=== PATIENT | male | born 1955 | race Caucasian/White ===

== ENCOUNTER 2018-04-30 10:53 | Emergency (ER) | payer OTHER ==
--- NOTE | 2018-04-30 11:49 | ED ---
General Adult HPI - General Chief complaint: ENT Stated complaint: sinus infection Time Seen by Provider: 04/30/18 11:09 Source: patient, RN notes reviewed Mode of arrival: ambulatory Limitations: no limitations - History of Present Illness Initial comments: 63-year-old male sent to the emergency department for a chief complaint of right ear pain x 3 days. Patient states he has been having a sharp right ear pain that shoots down to his right jaw. Patient states he has had this before and knows it is his eustachian tube. Patient states he has chronic sinusitis for over a few years now. Patient states he sees the OR for this and has a nasal spray. Patient states his ear started hurting and he wanted to make sure it wasn't infected. Patient denies any sore throat or cough. Patient denies any fevers or chills. Patient denies any facial pain or headaches. Patient states he is following up with the OR for a specialist appointment for chronic sinusitis. Patient has no other complaints at this time including shortness of breath, chest pain, abdominal pain, nausea or vomiting, headache, or visual changes. - Related Data Home Medications Medication Instructions Recorded Confirmed Aspirin EC [Ecotrin Low Dose] 81 mg PO DAILY 04/30/18 04/30/18 Atorvastatin [Lipitor] 40 mg PO DAILY 04/30/18 04/30/18 Empagliflozin [Jardiance] 10 mg PO DAILY 04/30/18 04/30/18 Fluticasone Nasal [place] [Flonase 2 spr EA NOSTRIL DAILY 04/30/18 04/30/18 Nasal [place]] Hydrocortisone/Pramoxine 1 applic RECTAL DAILY PRN 04/30/18 04/30/18 [Proctofoam-Hc 1%-1% Foam] Insulin Aspart [NovoLOG Flexpen] 10 units SQ AC-SUPPER 04/30/18 04/30/18 Insulin Aspart [NovoLOG Flexpen] 12 units SQ AC-LUNCH 04/30/18 04/30/18 Insulin Glargine,Hum.rec.anlog 45 unit SQ DAILY 04/30/18 04/30/18 [Lantus Solostar] Lisinopril [Zestril] 2.5 mg PO DAILY 04/30/18 04/30/18 Metoprolol Tartrate [Lopressor] 25 mg PO BID 04/30/18 04/30/18 Tamsulosin [Flomax] 0.4 mg PO HS 04/30/18 04/30/18 metFORMIN HCL [metFORMIN HCL ER] 1,000 mg PO BID-W/MEALS 04/30/18 04/30/18 Previous Rx's Medication Instructions Recorded Fluticasone Propionate [Flonase 1 spray EA NOSTRIL DAILY #9.9 ml 04/30/18 Allergy Relief] Loratadine [Claritin] 10 mg PO DAILY #20 tab 04/30/18 Allergies Allergy/AdvReac Type Severity Reaction Status Date / Time No Known Allergies Allergy Unverified 04/30/18 11:41 Review of Systems ROS Statement: Those systems with pertinent positive or pertinent negative responses have been documented in the HPI. ROS Other: All systems not noted in ROS Statement are negative. Past Medical History Past Medical History: Coronary Artery Disease (CAD), Diabetes Mellitus, Hyperlipidemia, Hypertension Additional Past Medical History / Comment(s): hard of hearing History of Any Multi-Drug Resistant Organisms: None Reported Past Surgical History: Coronary Bypass/CABG Additional Past Surgical History / Comment(s): cataract removal Past Psychological History: No Psychological Hx Reported Smoking Status: Former smoker Past Alcohol Use History: None Reported Past Drug Use History: None Reported General Exam Limitations: no limitations General appearance: alert, in no apparent distress Head exam: Present: atraumatic, normocephalic, normal inspection Eye exam: Present: normal appearance, PERRL, EOMI. Absent: scleral icterus, conjunctival injection, periorbital swelling ENT exam: Present: normal exam, normal oropharynx, mucous membranes moist, TM's normal bilaterally (Non-erythematous and bulging tympanic membranes bilaterally. No evidence of perforation or trauma.), normal external ear exam ( No tragus or pinna tenderness, no swelling in the ear canal) Neck exam: Present: normal inspection, full ROM. Absent: tenderness, meningismus, lymphadenopathy Respiratory exam: Present: normal lung sounds bilaterally. Absent: respiratory distress, wheezes, rales, rhonchi Cardiovascular Exam: Present: regular rate, normal rhythm, normal heart sounds. Absent: bradycardia, tachycardia, irregular rhythm Neurological exam: Present: alert, oriented X3, CN II-XII intact Psychiatric exam: Present: normal affect, normal mood Course Vital Signs 04/30/18 11:04 Temperature 98.3 F Pulse Rate 77 Respiratory 18 Rate Blood Pressure 142/73 O2 Sat by Pulse 93 L Oximetry Medical Decision Making - Medical Decision Making 63-year-old male presents to the emergency department for chief complaint of right ear pain 3 days. Patient has a history of chronic sinusitis and has had similar symptoms for which she has had attributed to his eustachian tube. Patient is currently using an Afrin nasal spray states the last time this happened he used Flonase which helped. Patient denies fevers or chills at home. Patient denies any headaches. On exam patient has a non-erythematous and non- bulging right tympanic membrane. No erythema or edema in the ear canal. No evidence for an otitis media or otitis externa. No tenderness in the mastoid. No drainage from the ear. At this time, no evidence of infection. Patient likely experiencing Eustachian tube dysfunction related to chronic sinusitis. Patient will be given Claritin as he does not currently take any ALLERGY medications. He will also be given a prescription of Flonase. He will follow up with the OR at his scheduled appointment to discuss specialty referral. He would rather do this and see one of our specialists. He will return to the emergency department if he has any worsening symptoms or fevers. Disposition Clinical Impression: Eustachian tube dysfunction Disposition: HOME SELF-CARE Condition: Good Instructions: Earache (ED) Additional Instructions: Please take prescriptions as directed. Continue to take Tylenol for pain. [facility] Return to the emergency department if you have any worsening symptoms. Prescriptions: Fluticasone Propionate [Flonase Allergy Relief] 1 spray EA NOSTRIL DAILY #9.9 ml Loratadine [Claritin] 10 mg PO DAILY #20 tab Is patient prescribed a controlled substance at d/c from ED?: No Referrals: [facility],Clinic [Primary Care Provider] - 1-2 days Time of Disposition: 11:46
[2018-04-30 12:20] VITALS: BP 151/94; PULSE 78; RESP 16; TEMP 97.8
== END 2018-04-30 12:19 | disposition home or self-care (01) ==
LOC: EC 10:53
DX: H69.91 Unspecified Eustachian tube disorder, right ear (principal); J32.9 Chronic sinusitis, unspecified; I25.10 Atherosclerotic heart disease of native coronary artery without angina pectoris; E11.9 Type 2 diabetes mellitus without complications; I10 Essential (primary) hypertension; E78.5 Hyperlipidemia, unspecified; Z95.1 Presence of aortocoronary bypass graft; Z87.891 Personal history of nicotine dependence; Z79.4 Long term (current) use of insulin; Z79.51 Long term (current) use of inhaled steroids; Z79.82 Long term (current) use of aspirin; Z79.899 Other long term (current) drug therapy
CPT/HCPCS: 99282

== ENCOUNTER 2019-10-26 12:40 | Emergency (ER) | payer OTHER ==
[2019-10-26 12:54] VITALS: BP 143/77; PULSE 71; RESP 18; TEMP 97.4
--- NOTE | 2019-10-26 13:03 | ED ---
ENT HPI - General Chief complaint: ENT Stated complaint: foreign body in let ear Time Seen by Provider: 10/26/19 12:56 Source: patient, RN notes reviewed Mode of arrival: ambulatory Limitations: no limitations - History of Present Illness Initial comments: This a 64-year-old male presents emergency Department with chief complaint of left ear foreign body. Patient states he has piece of his hearing aid earplugs stuck in his left ear. He states he is unable to remove it. Denies any pain no bleeding denies any other complaints. - Related Data Home Medications Medication Instructions Recorded Confirmed Aspirin EC [Ecotrin Low Dose] 81 mg PO DAILY 04/30/18 04/30/18 Atorvastatin [Lipitor] 40 mg PO DAILY 04/30/18 04/30/18 Empagliflozin [Jardiance] 10 mg PO DAILY 04/30/18 04/30/18 Fluticasone Nasal [place] [Flonase 2 spr EA NOSTRIL DAILY 04/30/18 04/30/18 Nasal [place]] Hydrocortisone/Pramoxine 1 applic RECTAL DAILY PRN 04/30/18 04/30/18 [Proctofoam-Hc 1%-1% Foam] Insulin Aspart [NovoLOG Flexpen] 10 units SQ AC-SUPPER 04/30/18 04/30/18 Insulin Aspart [NovoLOG Flexpen] 12 units SQ AC-LUNCH 04/30/18 04/30/18 Insulin Glargine,Hum.rec.anlog 45 unit SQ DAILY 04/30/18 04/30/18 [Lantus Solostar] Lisinopril [Zestril] 2.5 mg PO DAILY 04/30/18 04/30/18 Metoprolol Tartrate [Lopressor] 25 mg PO BID 04/30/18 04/30/18 Tamsulosin [Flomax] 0.4 mg PO HS 04/30/18 04/30/18 metFORMIN HCL [metFORMIN HCL ER] 1,000 mg PO BID-W/MEALS 04/30/18 04/30/18 Previous Rx's Medication Instructions Recorded Fluticasone Propionate [Flonase 1 spray EA NOSTRIL DAILY #9.9 ml 04/30/18 Allergy Relief] Loratadine [Claritin] 10 mg PO DAILY #20 tab 04/30/18 Allergies Allergy/AdvReac Type Severity Reaction Status Date / Time No Known Allergies Allergy Verified 10/26/19 12:54 Review of Systems ROS Statement: Those systems with pertinent positive or pertinent negative responses have been documented in the HPI. ROS Other: All systems not noted in ROS Statement are negative. Past Medical History Past Medical History: Coronary Artery Disease (CAD), Diabetes Mellitus, Hyperlipidemia, Hypertension Additional Past Medical History / Comment(s): hard of hearing History of Any Multi-Drug Resistant Organisms: None Reported Past Surgical History: Coronary Bypass/CABG Additional Past Surgical History / Comment(s): cataract removal Past Psychological History: No Psychological Hx Reported Smoking Status: Former smoker Past Alcohol Use History: None Reported Past Drug Use History: None Reported General Exam Limitations: no limitations General appearance: alert, in no apparent distress Head exam: Present: atraumatic, normocephalic, normal inspection Eye exam: Present: normal appearance, PERRL, EOMI. Absent: scleral icterus, conjunctival injection, periorbital swelling ENT exam: Present: normal oropharynx, mucous membranes moist, TM's normal bilaterally, normal external ear exam, other (Clear up her foreign body noticed in the left ear). Absent: normal exam Neck exam: Present: normal inspection. Absent: tenderness, meningismus, lymphadenopathy Respiratory exam: Present: normal lung sounds bilaterally. Absent: respiratory distress, wheezes, rales, rhonchi, stridor Cardiovascular Exam: Present: regular rate, normal rhythm, normal heart sounds. Absent: systolic murmur, diastolic murmur, rubs, gallop, clicks Course Vital Signs 10/26/19 12:50 Temperature 97.4 F L Pulse Rate 71 Respiratory 18 Rate Blood Pressure 143/77 O2 Sat by Pulse 95 Oximetry Procedures - Foreign Body Removal Ear Location: ear canal (L) Foreign Body Suspected: other (Rubber earpiece) Foreign Body Removed: yes Foreign Body Removal Technique: forceps Tympanic Membrane Intact: Yes Patient Tolerated Procedure: well, no complications Complications: none Medical Decision Making - Medical Decision Making Foreign body was removed with no complications, no trauma. She discharged in stable condition Disposition Clinical Impression: Foreign body in left ear Disposition: HOME SELF-CARE Condition: Stable Instructions (If sedation given, give patient instructions): Ear Foreign Body (ED) Additional Instructions: Please return to the Emergency Department if symptoms worsen or any other concerns. Is patient prescribed a controlled substance at d/c from ED?: No Referrals: [facility],Clinic [Primary Care Provider] - 1-2 days Time of Disposition: 13:03
== END 2019-10-26 13:10 | disposition home or self-care (01) ==
LOC: EC 12:40
DX: T16.2XXA Foreign body in left ear, initial encounter (principal); I25.10 Atherosclerotic heart disease of native coronary artery without angina pectoris; E11.9 Type 2 diabetes mellitus without complications; I10 Essential (primary) hypertension; E78.5 Hyperlipidemia, unspecified; Z79.82 Long term (current) use of aspirin; Z79.51 Long term (current) use of inhaled steroids; Z79.4 Long term (current) use of insulin; Z79.899 Other long term (current) drug therapy; Z87.891 Personal history of nicotine dependence; Z95.1 Presence of aortocoronary bypass graft
CPT/HCPCS: 69200; 99282

== ENCOUNTER 2022-08-18 23:25 | Observation (INO) | payer OTHER ==
--- NOTE | 2022-08-19 00:43 | ED ---
Recheck HPI - General Chief Complaint: Recheck/Abnormal Lab/Rx Stated Complaint: Irregular Heart Rate Time Seen by Provider: 08/18/22 23:48 Source: patient, RN notes reviewed, old records reviewed Mode of arrival: ambulatory Limitations: no limitations - History of Present Illness Initial Comments: This is a 67-year-old male presents today for evaluation of pacemaker interrogation. Patient was told to come to the hospital for evaluation by heart monitor. Patient otherwise feels well patient was checking his blood pressure and may have had irregular heart rate warning MD Complaint: other (Irregular heart rate) -: unknown Returns Today for: other (Irregular heart rate) Symptoms Since Prior Visit: no new symptoms Context: planned re-check Associated Symptoms: none Treatments Prior to Arrival: other (0) - Related Data Home Medications Medication Instructions Recorded Confirmed Aspirin EC [Ecotrin Low Dose] 81 mg PO DAILY 04/30/18 04/30/18 Atorvastatin [Lipitor] 40 mg PO DAILY 04/30/18 04/30/18 Empagliflozin [Jardiance] 10 mg PO DAILY 04/30/18 04/30/18 Fluticasone Nasal [place] [Flonase 2 spr EA NOSTRIL DAILY 04/30/18 04/30/18 Nasal [place]] Hydrocortisone/Pramoxine 1 applic RECTAL DAILY PRN 04/30/18 04/30/18 [Proctofoam-Hc 1%-1% Foam] Insulin Aspart [NovoLOG Flexpen] 10 units SQ AC-SUPPER 04/30/18 04/30/18 Insulin Aspart [NovoLOG Flexpen] 12 units SQ AC-LUNCH 04/30/18 04/30/18 Insulin Glargine,Hum.rec.anlog 45 unit SQ DAILY 04/30/18 04/30/18 [Lantus Solostar] Metoprolol Tartrate [Lopressor] 25 mg PO BID 04/30/18 04/30/18 Tamsulosin [Flomax] 0.4 mg PO HS 04/30/18 04/30/18 lisinopriL [Zestril] 2.5 mg PO DAILY 04/30/18 04/30/18 metFORMIN HCL [metFORMIN HCL ER] 1,000 mg PO BID-W/MEALS 04/30/18 04/30/18 Previous Rx's Medication Instructions Recorded Fluticasone Propionate [Flonase 1 spray EA NOSTRIL DAILY #9.9 ml 04/30/18 Allergy Relief] Loratadine [Claritin] 10 mg PO DAILY #20 tab 04/30/18 Allergies Allergy/AdvReac Type Severity Reaction Status Date / Time No Known Allergies Allergy Verified 08/18/22 23:36 Review of Systems ROS Statement: Those systems with pertinent positive or pertinent negative responses have been documented in the HPI. ROS Other: All systems not noted in ROS Statement are negative. Past Medical History Past Medical History: Coronary Artery Disease (CAD), Diabetes Mellitus, Hyperlipidemia, Hypertension Additional Past Medical History / Comment(s): hard of hearing History of Any Multi-Drug Resistant Organisms: None Reported Past Surgical History: Coronary Bypass/CABG Additional Past Surgical History / Comment(s): cataract removal Past Psychological History: No Psychological Hx Reported Smoking Status: Former smoker Past Alcohol Use History: None Reported Past Drug Use History: None Reported General Exam Limitations: no limitations General appearance: alert, in no apparent distress Head exam: Present: atraumatic, normocephalic, normal inspection Eye exam: Present: normal appearance, PERRL, EOMI. Absent: scleral icterus, conjunctival injection, periorbital swelling ENT exam: Present: normal exam, mucous membranes moist Neck exam: Present: normal inspection. Absent: tenderness, meningismus, ly mphadenopathy Respiratory exam: Present: normal lung sounds bilaterally. Absent: respiratory distress, wheezes, rales, rhonchi, stridor Cardiovascular Exam: Present: regular rate, normal rhythm, normal heart sounds. Absent: systolic murmur, diastolic murmur, rubs, gallop, clicks GI/Abdominal exam: Present: soft, normal bowel sounds. Absent: distended, tenderness, guarding, rebound, rigid Extremities exam: Present: normal inspection, full ROM, normal capillary refill. Absent: tenderness, pedal edema, joint swelling, calf tenderness Back exam: Present: normal inspection Neurological exam: Present: alert, oriented X3, CN II-XII intact Psychiatric exam: Present: normal affect, normal mood Skin exam: Present: warm, dry, intact, normal color. Absent: rash Course Vital Signs 08/18/22 08/19/22 23:33 01:16 Temperature 98 F Pulse Rate 71 67 Respiratory 18 16 Rate Blood Pressure 178/87 132/81 O2 Sat by Pulse 96 98 Oximetry - Reevaluation(s) Reevaluation #1: 08/19/22 01:44 Medical record is reviewed Reevaluation #2: 08/19/22 02:04 Spoke with patient regarding symptoms remains asymptomatic Reevaluation #3: 08/19/22 02:04 Patient informed results and questions answered - Consultations Consultation #1: Spoke with sound who agrees to admit this patient Medical Decision Making - Medical Decision Making 67 male with arrhythmia noted as he is taking his blood pressure. Patient be admitted for cardiac observation - Lab Data Result diagrams: 08/19/22 01:08 Lab Results 08/19/22 08/19/22 08/19/22 Range/Units 01:08 01:08 01:08 WBC 10.4 (3.8-10.6) k/uL RBC 5.44 (4.30-5.90) m/uL Hgb 15.8 (13.0-17.5) gm/dL Hct 46.8 (39.0-53.0) % MCV 86.0 (80.0-100.0) fL MCH 29.0 (25.0-35.0) pg MCHC 33.7 (31.0-37.0) g/dL RDW 13.0 (11.5-15.5) % Plt Count 259 (150-450) k/uL MPV 7.9 Neutrophils % 51 % Lymphocytes % 30 % Monocytes % 10 % Eosinophils % 5 % Basophils % 1 % Neutrophils # 5.3 (1.3-7.7) k/uL Lymphocytes # 3.1 (1.0-4.8) k/uL Monocytes # 1.1 H (0-1.0) k/uL Eosinophils # 0.6 (0-0.7) k/uL Basophils # 0.1 (0-0.2) k/uL PT 11.1 (9.0-12.0) sec INR 1.1 (<1.2) APTT 23.6 (22.0-30.0) sec Troponin I <0.012 (0.000-0.034) ng/mL - EKG Data -: EKG Interpreted by Me (EKG is sinus 62 KS 178 QRS 161 QTc 450) - Radiology Data Radiology results: report reviewed (Chest x-rays negative for acute disease), image reviewed Disposition Clinical Impression: Arrhythmia Disposition: ADMITTED IP TO [facility] Condition: Fair Is patient prescribed a controlled substance at d/c from ED?: No Referrals: [facility],Clinic [Primary Care Provider] - 1-2 days Time of Disposition: 01:55
[2022-08-19 01:17] VITALS: RESP 16
[2022-08-19 01:34] LABS: Basophils # (A) 0.1 k/uL (0-0.2); Basophils % (A) 1 %; Eosinophils # (A) 0.6 k/uL (0-0.7); Eosinophils % (A) 5 %; HCT 46.8 % (39.0-53.0); HGB 15.8 gm/dL (13.0-17.5); Lymphocytes # (A) 3.1 k/uL (1.0-4.8); Lymphocytes % (A) 30 %; MCHC 33.7 g/dL (31.0-37.0); Mean Platelet Volume 7.9; Monocytes # (A) 1.1 k/uL (0-1.0); Monocytes % (A) 10 %; Neutrophils # (A) 5.3 k/uL (1.3-7.7); Neutrophils % (A) 51 %; Platelet Count 259 k/uL (150-450); RBC 5.44 m/uL (4.30-5.90); WBC 10.4 k/uL (3.8-10.6)
[2022-08-19] MEDS ORDERED: NALOXONE 0.4 MG/ML 1 ML VIAL IV PRN (01:41)
[2022-08-19] MEDS ORDERED: ONDANSETRON 4 MG/2 ML VIAL IVP PRN (01:41)
[2022-08-19] MEDS ORDERED: MORPHINE SULFATE 4 MG/ML SYRINGE IV PRN (01:41)
[2022-08-19] MEDS ORDERED: SODIUM CHLORIDE 0.9% 1,000 ML IV SCH (01:45)
[2022-08-19 01:51] LABS: ALT 39 U/L (4-49); AST 41 U/L (17-59); African American GFR (CKD) >90 (>60 ml/min/1.73 sqM); Albumin 4.6 g/dL (3.5-5.0); Alkaline Phosphatase 103 U/L (38-126); Anion Gap 9 mmol/L; Blood Urea Nitrogen 26 mg/dL (9-20); Calcium 9.2 mg/dL (8.4-10.2); Carbon Dioxide 23 mmol/L (22-30); Chloride 106 mmol/L (98-107); Glucose 156 mg/dL (74-99); Magnesium 1.8 mg/dL (1.6-2.3); Non-African American GFR(CKD) 82 (>60 ml/min/1.73 sqM); Sodium 138 mmol/L (137-145); Total Protein 7.2 g/dL (6.3-8.2)
[2022-08-19 01:54] LABS: INR 1.1 (<1.2); Partial Thromboplastin Time 23.6 sec (22.0-30.0); Prothrombin Time 11.1 sec (9.0-12.0)
--- NOTE | 2022-08-19 01:55 | XR ---
EXAMINATION TYPE: XR chest 2V DATE OF EXAM: 08/19/2022 COMPARISON: NONE HISTORY: Weakness TECHNIQUE: 2 views FINDINGS: There is no heart failure nor confluent pneumonic infiltrate. Costophrenic angles are clear there are chest leads. Bony thorax is intact. There are sternal wires. IMPRESSION: No active cardiopulmonary disease. Normal heart.
[2022-08-19 02:07] LABS: Potassium 5.5 mmol/L (3.5-5.1)
--- NOTE | 2022-08-19 04:17 | P.HPIM ---
History of Present Illness H&P Date: 08/19/22 The patient is a 67-year-old male with a PMH of CAD status post bypass, hypertension, hyperlipidemia, type II DM who presents to the emergency room after his blood pressure monitor informed him of an irregular heart rate. The patient states that he recently was given a new blood pressure monitor due to his poor eyesight. He states that the monitor over the past few readings has been giving him an irregular heart rate warning. He contacted the staff at the [facility] who advised him to go to the emergency room. The patient reports feeling at his baseline. Denied experiencing chest discomfort, shortness of breath, palpitations, nausea, vomiting, diaphoresis, or dizziness. EKG in the emergency room revealed sinus rhythm at 62 bpm with left axis deviation with right bundle branch block. Laboratory evaluation was unremarkable. Review of systems: Pertinent positives and negatives as discussed in HPI, a complete review of systems was performed and all other systems are negative. Physical examination: General: non toxic, no distress, appears at stated age, obese Derm: no unusual rashes/lesions, warm Head: atraumatic, normocephalic, symmetric Eyes: EOMI, no lid lag, anicteric sclera, pupils equal round reactive to light ENT: Nose and ears atraumatic Neck: No cervical lymphadenopathy, trachea midline, supple Mouth: no lip lesion, mucus membranes moist Cardiovascular: S1S2 reg, no murmur, positive dorsalis pedis pulse bilateral, no edema Lungs: CTA bilateral, no rhonchi, no rales, no accessory muscle use Abdominal: soft, nontender to palpation, no guarding Ext: muscle strength 5 out of 5 in all 4 extremities grossly, no gross muscle atrophy, no contractures, Neuro: CN II-XI grossly intact, no gross focal neuro deficits Psych: Alert, oriented, appropriate affect Assessment/plan Possible arrhythmia -Cardiac monitoring -Cardiology consulted -Trend troponin Chronic conditions: Type II DM, hypertension, hyperlipidemia, coronary artery disease -Continue with home meds DVT prophylaxis -Heparin subq The patient is admitted with an anticipated less than 2 midnight stay for evaluation of irregular hr CODE STATUS: Full Code Discussed with: Patient Anticipated discharge date: in am Anticipated discharge place: Home Past Medical History Past Medical History: Coronary Artery Disease (CAD), Diabetes Mellitus, Hyp erlipidemia, Hypertension Additional Past Medical History / Comment(s): hard of hearing History of Any Multi-Drug Resistant Organisms: None Reported Past Surgical History: Coronary Bypass/CABG Additional Past Surgical History / Comment(s): cataract removal Past Psychological History: No Psychological Hx Reported Smoking Status: Former smoker Past Alcohol Use History: None Reported Past Drug Use History: None Reported - Past Family History Father Family Medical History: Coronary Artery Disease (CAD) Medications and Allergies Home Medications Medication Instructions Recorded Confirmed Type Aspirin EC [Ecotrin Low Dose] 81 mg PO DAILY 04/30/18 04/30/18 History Atorvastatin [Lipitor] 40 mg PO DAILY 04/30/18 04/30/18 History Empagliflozin [Jardiance] 10 mg PO DAILY 04/30/18 04/30/18 History Fluticasone Nasal [place] [Flonase 2 spr EA NOSTRIL DAILY 04/30/18 04/30/18 History Nasal [place]] Fluticasone Propionate [Flonase 1 spray EA NOSTRIL DAILY #9.9 ml 04/30/18 Rx Allergy Relief] Hydrocortisone/Pramoxine 1 applic RECTAL DAILY PRN 04/30/18 04/30/18 History [Proctofoam-Hc 1%-1% Foam] Insulin Aspart [NovoLOG Flexpen] 10 units SQ AC-SUPPER 04/30/18 04/30/18 History Insulin Aspart [NovoLOG Flexpen] 12 units SQ AC-LUNCH 04/30/18 04/30/18 History Insulin Glargine,Hum.rec.anlog 45 unit SQ DAILY 04/30/18 04/30/18 History [Lantus Solostar] Loratadine [Claritin] 10 mg PO DAILY #20 tab 04/30/18 Rx Metoprolol Tartrate [Lopressor] 25 mg PO BID 04/30/18 04/30/18 History Tamsulosin [Flomax] 0.4 mg PO HS 04/30/18 04/30/18 History lisinopriL [Zestril] 2.5 mg PO DAILY 04/30/18 04/30/18 History metFORMIN HCL [metFORMIN HCL ER] 1,000 mg PO BID-W/MEALS 04/30/18 04/30/18 History Allergies Allergy/AdvReac Type Severity Reaction Status Date / Time No Known Allergies Allergy Verified 08/18/22 23:36 Physical Exam Vitals: Vital Signs Temp Pulse Resp BP Pulse Ox 08/19/22 02:49 67 16 115/72 98 12/03/22 01:16 67 16 132/81 98 08/18/22 23:33 98 F 71 18 178/87 96 Intake and Output 08/18/22 08/18/22 08/19/22 14:59 22:59 06:59 Other: Weight 90.718 kg Results CBC & Chem 7: 08/19/22 01:08 08/19/22 01:08 Labs: Abnormal Lab Results - Last 24 Hours (Table) 08/19/22 08/19/22 Range/Units 01:08 01:08 Monocytes # 1.1 H (0-1.0) k/uL Potassium 5.5 H (3.5-5.1) mmol/L BUN 26 H (9-20) mg/dL Glucose 156 H (74-99) mg/dL
[2022-08-19] MEDS ORDERED: HEPARIN SODIUM,PORCINE/PF 5,000 UNIT/0.5 ML SYRINGE SQ SCH (08:00)
[2022-08-19 08:01] LABS: Glucose,Whole Blood 185 mg/dL (70-110)
[2022-08-19 08:35] VITALS: PULSE 68
[2022-08-19] MEDS: INSULIN ASPART (NovoLOG) 100 UNIT/ML VIAL SQ SCH ×2 (08:43→13:25)
[2022-08-19] MEDS ORDERED: ATORVASTATIN 40 MG TAB PO SCH (10:00)
[2022-08-19] MEDS ORDERED: METOPROLOL TARTRATE 25 MG TAB PO SCH (10:00)
--- NOTE | 2022-08-19 11:15 | P.PN ---
Subjective Progress Note Date: 08/19/22 Hospital course: Patient is a very pleasant 67-year-old male with a past medical history of of CAD status post CABG, hypertension, hyperlipidemia, type II insulin-dependent diabetes mellitus and very hard of hearing. He presented to the emergency department after his blood pressure monitor informed him of having an irregular heart rate. The patient states that he recently was given a new blood pressure monitor due to his poor eyesight. He states that the monitor over the past few readings has been giving him an irregular heart rate warning. He contacted the staff at the [facility] who advised him to go to the emergency room. The patient reported feeling at his baseline and denied experiencing any complaints including chest discomfort, shortness of breath, palpitations, nausea, vomiting, diaphoresis, dizziness, or experiencing any numbness/tingling/weakness in his extremities. He underwent full evaluation in the emergency department. CBC unremarkable. Coags unremarkable. CMP unremarkable with the exception of slightly elevated potassium of 5.5 which was a hemolyzed specimen causing false elevation. Troponin negative at less than 0.012. EKG in the emergency room rev ealed normal sinus rhythm at 62 bpm with left axis deviation and a right bundle branch block. Vital signs were stable. Patient was admitted under our services with consultation to cardiology. He was monitored overnight on continuous telemetry monitoring with no reported arrhythmias. Troponins were trended all negative at less than 0.0123 draws. He was evaluated by cardiology and underwent an echocardiogram which revealed an EF of 45-50% with mild mitral and tricuspid regurgitation. Cardiology recommending continuation of cardiac medication regimen and following up outpatient in their office in one week. Medically, patient is stable for discharge at this time and he reports remaining free from any complaints. Patient discharged home and to follow up outpatient with PCP in 1-2 days and cardiology in 1 week. Physical exam: Vital signs reviewed and stable. General: Nontoxic, no distress and appears stated age. Derm: Skin warm and dry, normal coloration for ethnicity. Head: Atraumatic, normocephalic and symmetric. Very hard of hearing. Eyes: EOMs intact, no lid lag, and anicteric sclera Mouth: no lip lesions, mucus membranes moist Cardiovascular: regular rate and rhythm with normal S1S2, no murmur, positive posterior tibial pulses bilaterally, and cap refill < 2 seconds. Lungs: Respirations even, regular, and unlabored on room air. Lungs CTA bilaterally, no rhonchi, no rales, no wheezing, and no accessory muscle usage. Abdominal: soft, nontender to palpation, no guarding, no appreciable organomegaly Ext: ROM intact. No gross muscle atrophy, no edema, no contractures Neuro: Speech clear, face symmetrical and CN II-XII grossly intact with no noted focal neuro deficits Psych: Alert and oriented to person, place, time, and situation. Appropriate and pleasant affect. Assessment and Plan of Care: Possible arrhythmia -Cardiac monitoring -Cardiology consulted -Trend troponin Chronic conditions: Type II DM, hypertension, hyperlipidemia, coronary artery disease -Continue with home meds DVT prophylaxis -Heparin subq CODE STATUS: Full code DVT prophylaxis: Heparin Discussed with: Patient and RN Anticipated discharge date: [] Anticipated discharge place: Home A total of 33 minutes was spent on the care of this complex patient more than 50% of the time was spent in counseling and care coordination. Objective - Vital Signs Vital signs: Vital Signs Temp 97.6 F 08/19/22 07:00 Pulse 68 08/19/22 07:00 Resp 16 08/19/22 07:00 BP 152/93 08/19/22 07:00 Pulse Ox 98 08/19/22 07:00 FiO2 Intake & Output 08/18/22 08/19/22 08/19/22 18:59 06:59 18:59 Weight 90.718 kg - Labs CBC & Chem 7: 08/19/22 01:08 08/19/22 01:08 Labs: Abnormal Lab Results - Last 24 Hours (Table) 08/19/22 08/19/22 08/19/22 Range/Units 01:08 01:08 07:59 Monocytes # 1.1 H (0-1.0) k/uL Potassium 5.5 H (3.5-5.1) mmol/L BUN 26 H (9-20) mg/dL Glucose 156 H (74-99) mg/dL POC Glucose (mg/dL) 185 H (70-110) mg/dL
[2022-08-19 11:45] LABS: Glucose,Whole Blood 274 mg/dL (70-110)
[2022-08-19 13:54] VITALS: BP 150/88; TEMP 97.4
--- NOTE | 2022-08-19 15:16 | CA ---
Transthoracic Echo Report Name: Santhosh Stock Age: 67 Gender: M : 1955 Exam Date: 08/19/2022 12:31 Exam Location: [facility] Ht (in): 65 Wt (lb): 200 Ordering Physician: Marissa Dowell Attending/Referring Phys: Remote [employer] On [employer] Developer Fanny Laughlin RDCS Procedure CPT: Indications: sycope Cardiac Hx: Technical Quality: Contrast 1: Total Dose (mL): Contrast 2: Total Dose (mL): MEASUREMENTS (Male / Female) Normal Values 2D ECHO LV Diastolic Diameter PLAX 4.7 cm 4.2 - 5.9 / 3.9 - 5.3 cm LV Systolic Diameter PLAX 4.2 cm IVS Diastolic Thickness 1.1 cm 0.6 - 1.0 / 0.6 - 0.9 cm LVPW Diastolic Thickness 1.2 cm 0.6 - 1.0 / 0.6 - 0.9 cm LV Relative Wall Thickness 0.5 RV Internal Dim ED PLAX 3.0 cm LA Systolic Diameter LX 3.8 cm 3.0 - 4.0 / 2.7 - 3.8 cm M-MODE Aortic Root Diameter MM 2.9 cm LA Systolic Diameter MM 3.9 cm LA Ao Ratio MM 1.4 MV E Point Septal Separation 0.4 cm AV Cusp Separation MM 1.9 cm DOPPLER MV Area PHT 4.2 cm??? Mitral E Point Velocity 74.3 cm/s Mitral A Point Velocity 52.0 cm/s Mitral E to A Ratio 1.4 MV Deceleration Time 181.9 ms MV E' Velocity 5.1 cm/s Mitral E to MV E' Ratio 14.5 FINDINGS Left Ventricle Left ventricular ejection fraction is estimated at 45-50 %. Left ventricular cavity size normal. Mildly increased left ventricular wall thickness. Right Ventricle Normal right ventricular size and function. Right ventricular systolic pressure within normal limits. Right Atrium Normal right atrial size. Left Atrium Normal left atrial size. Mitral Valve Structurally normal mitral valve. Mild mitral regurgitation. Aortic Valve Trileaflet aortic valve. Tricuspid Valve Structurally normal tricuspid valve. Mild tricuspid regurgitation. Pulmonic Valve Structurally normal pulmonic valve. Pericardium Echo free space anterior to the right ventricle likely represents a fat pad. Aorta Normal size aortic root and proximal ascending aorta. CONCLUSIONS Mild LV systolic dysfunction mild mitral regurgitation and mild tricuspid regurgitation Previewed by: Dr. Jaison Wall MD (Electronically Signed) Final Date: 19 August 2022 15:15
--- NOTE | 2022-08-19 16:20 | P.DS ---
Providers Date of admission: 08/19/22 01:41 Expected date of discharge: 08/19/22 Attending physician: Shama Salcedo MD Consults: 08/19/22 01:41 Consult Physician Routine Consulting Provider: Ghassan Mendenhall Consult Reason/Comments: arrhythmia Do you want consulting provider notified?: Yes Primary care physician: [facility] Course: Discharge Diagnosis: Rule out arrhythmia, Irregular heart rate reported on home blood pressure monitoring system. EKG showing sinus mechanism with a right bundle branch block. Troponins trended 3 all negative. Echocardiogram completed revealing EF of 45-50% with mild mitral and tricuspid regurgitation. Vital signs unremarkable. Patient monitored on continuous telemetry monitoring overnight with no reported arrhythmias noted. Recommend patient to continue daily medication regimen with metoprolol and lisinopril and follow up outpatient with PCP in 1-2 days and cardiology in 1 week. History of CAD status post CABG, continue daily medication regimen with aspirin, lisinopril, atorvastatin, and metoprolol. Hypertension, monitor vital signs and continue daily medication regimen with lisinopril and metoprolol. Hyperlipidemia, continue daily medication regimen with atorvastatin. Type 2 insulin-dependent diabetes mellitus, resume metformin, Jardiance, and home NovoLog and Lantus. BPH, continue daily medication regimen of [facility] Course: Patient is a very pleasant 67-year-old male with a past medical history of of CAD status post CABG, hypertension, hyperlipidemia, type II insulin-dependent diabetes mellitus, BPH and very hard of hearing. He presented to the emergency department after his blood pressure monitor informed him of having an irregular heart rate. The patient states that he recently was given a new blood pressure monitor due to his poor eyesight. He states that the monitor over the past few readings has been giving him an irregular heart rate warning. He contacted the staff at the [facility] who advised him to go to the emergency room. The patient reported feeling at his baseline and denied experiencing any complaints including chest discomfort, shortness of breath, palpitations, nausea, vomiting, diaphoresis, dizziness, or experiencing any numbness/tingling/weakness in his extremities. He underwent full evaluation in the emergency department. CBC unremarkable. Coags unremarkable. CMP unremarkable with the exception of slightly elevated potassium of 5.5 which was a hemolyzed specimen causing false elevation. Troponin negative at less than 0.012. EKG in the emergency room revealed normal sinus rhythm at 62 bpm with left axis deviation and a right bundle branch block. Vital signs were stable. Patient was admitted under our services with consultation to cardiology. He was monitored overnight on continuous telemetry monitoring with no reported arrhythmias. Troponins were trended all negative at less than 0.0123 draws. He was evaluated by cardiology and underwent an echocardiogram which revealed an EF of 45-50% with mild mitral and tricuspid regurgitation. Cardiology recommending continuation of cardiac medication regimen and following up outpatient in their office in one week. Medically, patient is stable for discharge at this time and he reports remaining free from any complaints. Patient discharged home and to follow up outpatient with PCP in 1-2 days and cardiology in 1 week. Physical exam: Vital signs reviewed and stable. General: Nontoxic, no distress and appears stated age. Derm: Skin warm and dry, normal coloration for ethnicity. Head: Atraumatic, normocephalic and symmetric. Very hard of hearing. Eyes: EOMs intact, no lid lag, and anicteric sclera Mouth: no lip lesions, mucus membranes moist Cardiovascular: regular rate and rhythm with normal S1S2, no murmur, positive posterior tibial pulses bilaterally, and cap refill < 2 seconds. Lungs: Respirations even, regular, and unlabored on room air. Lungs CTA bilaterally, no rhonchi, no rales, no wheezing, and no accessory muscle usage. Abdominal: soft, nontender to palpation, no guarding, no appreciable organomegaly Ext: ROM intact. No gross muscle atrophy, no edema, no contractures Neuro: Speech clear, face symmetrical and CN II-XII grossly intact with no noted focal neuro deficits Psych: Alert and oriented to person, place, time, and situation. Appropriate and pleasant affect. A total of 32 minutes of time were spent preparing this complex discharge summary. Pt was discharged on 08/19/22 at 4:19 PM. I reviewed the documentation as provided by the LESLIE above, who is the original author of this note. I agree with the documented assessment and plan, with the following changes: none Patient Condition at Discharge: Stable Plan - Discharge Summary Discharge Rx Participant: No New Discharge Prescriptions: Continue Aspirin EC [Ecotrin Low Dose] 81 mg PO DAILY Tamsulosin [Flomax] 0.8 mg PO HS lisinopriL [Zestril] 5 mg PO DAILY Insulin Glargine,Hum.rec.anlog [Lantus Solostar Pen] 40 unit SQ HS Insulin Aspart [NovoLOG Flexpen] 20 units SQ AC-TID Atorvastatin [Lipitor] 40 mg PO DAILY metFORMIN HCL [Glucophage] 1,000 mg PO BID Empagliflozin [Jardiance] 25 mg PO DAILY Metoprolol Tartrate [Lopressor] 25 mg PO BID Ceylon-3/Dha/Epa/Fish Oil [Fish Oil 1,000 mg Softgel] 1 cap PO DAILY Multivitamins, Thera [Multivitamin (formulary)] 1 tab PO DAILY Discharge Medication List Aspirin EC [Ecotrin Low Dose] 81 mg PO DAILY 04/30/18 [History] Atorvastatin [Lipitor] 40 mg PO DAILY 04/30/18 [History] Insulin Aspart [NovoLOG Flexpen] 20 units SQ AC-TID 04/30/18 [History] Insulin Glargine,Hum.rec.anlog [Lantus Solostar Pen] 40 unit SQ HS 04/30/18 [History] Tamsulosin [Flomax] 0.8 mg PO HS 04/30/18 [History] lisinopriL [Zestril] 5 mg PO DAILY 04/30/18 [History] Empagliflozin [Jardiance] 25 mg PO DAILY 08/19/22 [History] Metoprolol Tartrate [Lopressor] 25 mg PO BID 08/19/22 [History] Multivitamins, Thera [Multivitamin (formulary)] 1 tab PO DAILY 08/19/22 [History] Ceylon-3/Dha/Epa/Fish Oil [Fish Oil 1,000 mg Softgel] 1 cap PO DAILY 08/19/22 [History] metFORMIN HCL [Glucophage] 1,000 mg PO BID 08/19/22 [History] Follow up Appointment(s)/Referral(s): Jaison Wall MD [STAFF PHYSICIAN] - 1 Week [facility] [Primary Care Provider] - 1-2 days Patient Instructions/Handouts: Telemetry Monitoring (GEN) Activity/Diet/Wound Care/Special Instructions: Activity: As tolerated. Take breaks as needed. Diet: Heart healthy and carb consistent diet. Avoid salts, or foods with hidden salts such as canned or boxed foods and frozen dinners. Extra salt makes your heart work harder and traps the fluid in your body for longer. Special Instructions: Take all of your medications as directed and remember to keep all of your doctor's appointments and follow-up as needed. Thank you for your service, it is always an honor to get to provide care for a !!!! Thank you for allowing us to participate in your care, it was truly a pleasure having you for our patient!!! Discharge Disposition: HOME SELF-CARE
--- NOTE | 2022-08-19 19:55 | CONS ---
CONSULTATION HISTORY OF PRESENT ILLNESS: Mr. Stock is a 67-year-old gentleman with history of coronary artery disease status post bypass surgery, hypertension, dyslipidemia, type 2 diabetes, who recently received a new blood pressure monitoring device, has poor eyesight, was checking it at home, noticed irregular heart rate, called his staff at the [facility], who advised him to go to the emergency room, where he got admitted and Cardiology had been consulted. He does not have any cardiac symptoms. His initial EKG showed sinus rhythm with left axis deviation and right bundle branch block. At the time of my evaluation this morning, he is doing well. Three sets of cardiac enzymes have been negative. Hemoglobin is normal, and renal functions have been normal. He is eager to go home. PAST MEDICAL HISTORY: Significant for coronary artery disease status post CABG, diabetes, hypertension, dyslipidemia. CURRENT MEDICATIONS: 1. Zestril 2.5 daily. 2. Flomax. 3. Lopressor 25 b.i.d. 4. Lipitor 40 daily. 5. Metformin. 6. Insulin. 7. Jardiance. 8. Aspirin. ALLERGIES: There are no known drug allergies. FAMILY HISTORY: Negative for premature coronary artery disease. SOCIAL HISTORY: Negative for current smoking, EtOH abuse, or drug abuse. REVIEW OF SYSTEMS: HEENT: Significant for vision impairment. CARDIAC: As described above. RESPIRATORY: Negative. GI: Negative. GENITOURINARY: Negative. ALLERGY/IMMUNOLOGY: Negative. SKIN: Negative. MUSCULOSKELETAL: Significant for arthritis. PSYCHOSOCIAL: Negative. DERM: Negative. CONSTITUTIONAL: Negative. ONCOLOGICAL: Negative. ANIMAL NUTRITION CONSULTANT: Negative. Rest of the system review is not relevant. PHYSICAL EXAMINATION: GENERAL: Comfortable at rest. VITAL SIGNS: Afebrile, heart rate is 68 beats per minute, blood pressure is , respiratory rate is 18, O2 saturation is 98% on room air. NECK: There is no jugular venous distention. Carotid upstroke is normal. There is no bruit. CHEST: Reveals good air entry bilaterally. HEART: Reveals first and second heart sounds. No gallop. No murmur. ABDOMEN: Soft, nontender. EXTREMITIES: Did not reveal any edema. Peripheral pulses are felt. ASSESSMENT: 1. Palpitations. 2. Coronary artery disease, status post coronary artery bypass graft. 3. Hypertension. 4. Dyslipidemia. PLAN: The patient has had a fairly unremarkable cardiac workup. The exact reason for the irregular rhythm noted on the monitoring device is unclear. [facility] 24-hour Holter done and followed up with his own physician. KARTIK / MILLIE: [id number] /
[2022-08-19] MEDS ORDERED: TAMSULOSIN 0.4 MG CAP.ER.24H PO SCH (21:00)
== END 2022-08-19 16:39 | disposition home or self-care (01) ==
LOC: EC 23:25 → 6NMEDSUR 08-19 01:41
PROVIDERS: ADMIT Internal Medicine; ATTEND Internal Medicine
DX: R00.2 Palpitations (principal); E11.9 Type 2 diabetes mellitus without complications; I11.9 Hypertensive heart disease without heart failure; I08.1 Rheumatic disorders of both mitral and tricuspid valves; I25.10 Atherosclerotic heart disease of native coronary artery without angina pectoris; I45.10 Unspecified right bundle-branch block; N40.0 Benign prostatic hyperplasia without lower urinary tract symptoms; E78.5 Hyperlipidemia, unspecified; H91.90 Unspecified hearing loss, unspecified ear; Z79.82 Long term (current) use of aspirin; Z79.84 Long term (current) use of oral hypoglycemic drugs; Z79.4 Long term (current) use of insulin; Z79.899 Other long term (current) drug therapy; Z95.1 Presence of aortocoronary bypass graft; Z98.49 Cataract extraction status, unspecified eye; Z87.891 Personal history of nicotine dependence; Z82.49 Family history of ischemic heart disease and other diseases of the circulatory system
CPT/HCPCS: 96372; 99285; 36415; 93005; 93306; 83880; 80053; 83735; 84100; 84484; 85025; 85610; 85730; 71046; G0378; J1644